=== PATIENT | female | born 1980 | race Caucasian/White ===

== ENCOUNTER 2017-03-20 21:30 | Emergency (ER) | payer MEDICAID, OTHER ==
[~2017-03-20] VITALS: Ht 162.6 cm; Wt 54.5 kg
[2017-03-20 21:33] VITALS: Ht 162.6 cm; Wt 54.5 kg
== END 2017-03-21 00:29 | disposition left against medical advice (07) ==
LOC: E/R 21:30
DX: Z53.21 Procedure and treatment not carried out due to patient leaving prior to being seen by health care provider (principal)